=== PATIENT | female | born 1970 | race Caucasian/White ===

== ENCOUNTER 2019-01-16 12:16 | Observation (INO) | payer OTHER, SELFPAY ==
[2019-01-16] VITALS (15 sets, daily range): BP systolic 104–132; BP diastolic 48–92; PULSE 88–119; RESP 16–28; TEMP 36.1–37.2; O2SAT 87–96; BMI 47.0; BMI 46.5
--- NOTE | 2019-01-16 12:52 | EKG12_ITS ---
Test Reason : GENERAL ILLNESS Blood Pressure : / mmHG Vent. Rate : 090 BPM Atrial Rate : 090 BPM P-R Int : 192 ms QRS Dur : 086 ms QT Int : 358 ms P-R-T Axes : 035 016 032 degrees QTc Int : 437 ms Normal sinus rhythm Septal infarct , age undetermined Abnormal ECG Confirmed by BHUPENDRA BULLOCK, ROSIBEL ([id number]), marketing editor JAMILAH CULLEN ([id number]) on 01/20/2019 10:39:29 AM Referred By: LESA Confirmed By:ROSIBEL HUIZAR MD
[2019-01-16] MEDS: Ipratropium/Albuterol Sulfate 3 ML AMPUL.NEB INHALATION ×3 (13:10→22:59)
[2019-01-16] MEDS: 0.9% Normal Saline 1,000 ML 150 ML IV (13:19)
[2019-01-16] MEDS: MethylPREDNISolone 125 MG/2 ML Vial IV (13:19)
[2019-01-16 13:24] LABS: Absolute Lymphocyte Count 1.28 X10^3/ul (0.83-4.51); Absolute Neutrophil Count 4.2 X10^3/uL (2.0-7.7); Basophil# 0.04 X10^3/uL; Basophil% 0.6 % (0-1); Eosinophil# 0.27 X10^3/uL; Eosinophils% 4.3 % (0-5); Hematocrit 55.2 % (37-47); Hemoglobin 17.8 g/dl (12.0-15.0); Lymphocyte # 1.28 X10^3/ul (4.0); Lymphocyte % 20.2 % (19-41); Mean Corp Hgb Conc 32.2 g/gl (32-36); Mean Corpuscular Hgb 33.7 pg (27.0-32.0); Mean Corpuscular Volume 104.5 fL (81-99); Mean Platelet Vol. 10.6 fl (6.2-12.0); Monocyte# 0.58 X10^3/uL; Monocyte% 9.1 % (0-10); Neutrophil # 4.17 X10^3/uL (2.7-7.7); Neutrophil % 65.6 % (47-70); Platelet Count 204 K/mm3 (150-450); RBC Distribution Width CV 14.8 % (11.6-14.6); Red Blood Count 5.28 M/mm3 (4.2-5.4); White Blood Count 6.4 K/mm3 (4.4-11.0)
[2019-01-16 13:26] LABS: POSITIVE COUNT NO; POSITIVE DIFFERENTIAL NO; POSITIVE MORPHOLOGY NO
[2019-01-16 13:31] LABS: Anion Gap 6 (5-15); BUN 19 mg/dL (7-18); BUN/Creat Ratio 18.8 RATIO (10-20); Calcium,Total 9.7 mg/dL (8.5-10.1); Chloride 99 mmol/L (98-107); Creatinine, Serum 1.01 mg/dL (0.55-1.02); EST Glomerular Filtration Rate 62 mL/min (>60); Est Glom Filt Rate - Afr Amer 75 mL/min (>60); Estimated Creatinine Clearance 63.77 ml/min; Glucose 115 mg/dL (74-106); Potassium 4.4 mmol/L (3.5-5.1); Sodium Level 138 mmol/L (136-145)
[2019-01-16 13:37] LABS: D-Dimer Quantitative (DVT/PE) 0.65 FEU/ug/m (0.27-0.49)
--- NOTE | 2019-01-16 13:39 | CT_ITS ---
STUDY: CTA CHEST REASON FOR EXAM: Female, 48 years old. Hypoxia. RADIATION DOSAGE (If Supplied By Facility): CTDIvol = ( 13.20 ) mGy, DLP = ( 700.87 ) mGycm TECHNIQUE: The examination was performed with the intravenous administration of Isovue 370 100 IV. Post-processing of the angiographic images was performed, with multiplanar reformation and 3D reconstruction. Individualized dose optimization techniques were used for this CT. COMPARISON: None. FINDINGS: Normal enhancement of the main pulmonary artery and right and left pulmonary arteries. Normal enhancement of the bilateral peripheral pulmonary arteries. There is no demonstrated pulmonary embolism. Normal thoracic aorta and visualized great vessels. There is no demonstrated aortic dissection. Normal heart and pericardium. Normal mediastinum. Normal hilar regions. Normal visualized trachea and bronchi. The lungs are well expanded. Mild degree of increased markings at the left lung base suggestive of atelectasis Normal pleura. Normal chest wall structures. There are degenerative changes of thoracic spine. Normal visualized upper abdomen. CT/CTA Chest W/WO Contrast IMPRESSION: Normal CTA chest examination, without a demonstrated pulmonary embolism or arterial dissection. Electronically Signed: Todd Rangel MD at 15:39 EST , Service support ,
[2019-01-16] MEDS: LORazepam 2 MG/ML Syringe 1 MG IV (14:16)
--- NOTE | 2019-01-16 15:58 | ED.DCSUM_ITS ---
- ER Visit Summary Date of Service: 01/16/19 Chief Complaint: [Shortness of breath] History of Present Illness: The patient is a 48 F [presents the emergency department with complaint of shortness of breath for about 4 days. Patient's had a cough and some chills as well as subjective fever. Patient at times will bring up some yellow sputum. She was seen at the urgent care today and given a breathing treatment and after breathing treatment her O2 sat was 87% therefore she was referred to the emergency department for evaluation. Patient denies recent travel or surgery. She does complain of exertional dyspnea. She does not have a history of asthma and she does not smoke. She denies any sick cont acts.] Physical Examination: [HEENT-PERRLA, EOMI. Cranial nerves II through XII grossly intact. TMs clear. Mucous membranes moist. No adenopathy. Cardiovascular-regular rate and rhythm without murmur or ectopy Lungs-diminished breath sounds bilaterally with some faint expiratory wheezes noted. Mild tachypnea. No accessory muscle use or retractions. No significant conversational dyspnea. Abdomen-normoactive bowel sounds, soft, nontender, no rebound or rigidity, no peritoneal signs. Extremities-intact ?4, normal range of motion, normal pulses, atraumatic. No edema of the lower extremities.] Test Results: [EKG obtained arrival shows sinus rhythm with a ventricular rate of 90 bpm with old septal infarct noted. CBC with differential showing a 6.4, hemoglobin 17 hematocrit 55, platelets 204. Chemistries unremarkable. D-dimer was elevated at 0.6 therefore CTA of the chest was obtained which was negative for PE or dissection.] Emergency Department Course and Treatment: [Patient received a DuoNeb aerosol and Solu-Medrol 125 mill grams IV. Patient was placed on nasal cannula O2.] Treatment Plan: [Admit] Disposition: [Admit] Impression: [Asthmatic bronchitis Hypoxemia] This note was generated with [employer] dictation software. It may contain incorrect words, spelling, and punctuation that were not noted in review of the chart prior to signing ED Disposition - Plan for ED Patient: Referrals: Christian Padilla MD [Primary Care Provider] -
--- NOTE | 2019-01-16 16:17 | HP.PCM_ITS ---
Problem List (1) Acute hypoxic respiratory failure Status: Acute (2) Acute bronchitis and bronchiolitis Status: Acute (3) Hypertension Status: Chronic (4) Morbid obesity Status: Chronic History of Present Illness Date of Admission: 01/16/19 Chief Complaint: Shortness of breath for 4 days The patient is a 48 year old F with history of morbid obesity, chronic sinusitis and probably obstructive sleep apnea came to ED with shortness of breath and cough for 4 days. She denies any chest pain/pressure. Cough is mainly dry but sometimes brings yellow phlegm and a subjective fever with chills. She was seen at urgent care and was found hypoxic 88% on room air. Heart rate 94 - 103/min. Respiratory rate 18-20/min. [] Chest x-ray done at the urgent care interstitial lung markings at right mid and lower lung without definite focal infiltrate or airspace consolidation seems mainly chronic. Subtle peribronchial cuffing suggestive of possible viral bronchiolitis. Past Medical History Past Medical History (Chronic Problems): Chronic Problems Hypertension (Chronic) Morbid obesity (Chronic) Allergies No Known Allergies Allergy (Verified 01/16/19 12:32) Home Medications: Ambulatory Orders Medication Instructions Recorded Hydrochlorothiazide 12.5 mg PO DAILY 01/16/19 Lisinopril [Zestril] 40 mg PO DAILY 01/16/19 Smoking Status: Former smoker - *Family History Paternal History Items: Stroke Maternal History Items: Dementia, Heart Disease Review of Systems Constitutional: Reports: Chills, Fever HEENT: Denies: Head Aches, Sinus Congestion, Sinus Drainage Cardiovascular: Denies: Chest Pain, Palpitations Respiratory: Reports: Cough, Shortness of breath at rest, Shortness of breath upon exertion. Denies: Sputum production Gastrointestinal: Denies: Abdominal Pain, Nausea, Vomiting Genitourinary: Denies: Dysuria, Frequency, Hematuria, Hesitancy Musculoskeletal: Denies: Joint Pain, Joint Tenderness Skin: Denies: Rash, Wounds Neurological: Denies: Numbness, Tingling, Focal weakness Psychiatric: Denies: Anxiety, Depression, Homicidal Ideations, Suicidal Ideations Hematologic/ Lymphatic: Denies: Easy Bruising, Easy Bleeding VTE Information - Inpt Only VTE Present on Admission: No VTE Mechan Device Prophylaxis: None VTE Pharm Prophylaxis ordered?: Yes Patient Problems: Active and Suspected Problems Acute hypoxic respiratory failure (Acute) Acute bronchitis and bronchiolitis (Acute) - Physical Exam General: Alert, Oriented x3, Cooperative HEENT: Atraumatic, PERRLA, EOMI, Normocephalic Neck: Supple, No JVD, Negative Carotid Bruits Lungs: Diminished - Air entry diminished bilaterally, Rhonchi, Short of Breath, Wheezes Cardiovascular: Regular rate, Regular Rhythm, Normal S1, Normal S2, No murmurs Abdomen: Bowel Sounds Present, Soft, Non Tender, Non-Distended Extremities: No edema, Capillary Refill Less than 3 Seconds Skin: No rashes, No breakdown Musculoskeletal: No Tenderness to Palpation of Joints or Extremities, Arthritic Changes Neurological: Cranial nerves II-XII grossly intact Psych/Mental Status: Normal Affect, Appropriate Vital Signs Temp Pulse Resp BP Pulse Ox 98.5 F 99 20 H 115/92 H 93 01/16/19 15:10 01/16/19 15:10 01/16/19 15:10 01/16/19 15:10 01/16/19 15:10 Oxygen Flow Rate (L/min) 3 Oxygen Delivery Method Nasal Cannula Weight: 291 lb 0.163 oz Body Mass Index (BMI) 47.0 Laboratory Tests Past 24 Hrs 01/16/19 01/16/19 01/16/19 13:15 13:15 13:15 WBC 6.4 RBC 5.28 Hgb 17.8 H Hct 55.2 H MCV 104.5 H MCH 33.7 H MCHC 32.2 RDW 14.8 H RDW Differential 57.0 H Plt Count 204 MPV 10.6 Immature Gran % (Auto) 0.200 Neut % (Auto) 65.6 Lymph % (Auto) 20.2 [place] % (Auto) 9.1 Eos % (Auto) 4.3 Baso % (Auto) 0.6 Absolute Neuts (auto) 4.2 Absolute Lymphs (auto) 1.28 Total Counted Not Reportable D-Dimer Quant (PE/DVT) 0.65 H* Sodium 138 Potassium 4.4 Chloride 99 Carbon Dioxide 33.0 H Anion Gap 6 BUN 19 H Creatinine 1.01 Estim Creat Clear Calc 63.77 Est GFR (MDRD) Af Amer 75 Est GFR (MDRD) Non-Af 62 BUN/Creatinine Ratio 18.8 Glucose 115 H Calcium 9.7 Assessment/Plan All Active Problems Acute hypoxic respiratory failure (Acute) Acute bronchitis and bronchiolitis (Acute) The patient is a 48 year old F with history of morbid obesity, chronic sinusitis and probably obstructive sleep apnea came to ED with shortness of breath and cough for 4 days. She denies any chest pain/pressure. Cough is mainly dry but sometimes brings yellow phlegm and a subjective fever with chills. She was seen at urgent care and was found hypoxic 88% on room air. Heart rate 94 - 103/min. Respiratory rate 18-20/min. [] Chest x-ray done at the urgent care interstitial lung markings at right mid and lower lung without definite focal infiltrate or airspace consolidation seems yahaira nly chronic. Subtle peribronchial cuffing suggestive of possible viral bronchiolitis. 1. Acute hypoxic respiratory failure most probably bronchiolitis, most probably viral bronchiolitis: [facility] Repeat chest x-ray PA and lateral tomorrow a.m. Respiratory panel ordered. Monitor temperature profile. 2. Acute bronchitis/bronchiolitis or possible COPD asthmatic bronchitis and possible obstructive sleep apnea/Obesity hypoventilation syndrome: : Started smoking since age of 16, relapsed 2-3 times and finally quit 1 year ago. Patient also probably obstructive sleep apnea with snoring and intermittent waking up in the night. Patient was advised outpatient sleep study. 3. Hypertension: Blood pressure stable. DVT prophylaxis: Lovenox 40 minutes subcu daily Laboratory Results 01/16/19 13:15: WBC 6.4, RBC 5.28, Hgb 17.8 H, Hct 55.2 H, MCV 104.5 H, MCH 33.7 H, MCHC 32.2, RDW 14.8 H, RDW Differential 57.0 H, Plt Count 204, MPV 10.6, Immature Gran % (Auto) 0.200, Neut % (Auto) 65.6, Lymph % (Auto) 20.2, Fleming % (Auto) 9.1, Eos % (Auto) 4.3, Baso % (Auto) 0.6, Absolute Neuts (auto) 4.2, Absolute Lymphs (auto) 1.28, Total Counted Not Reportable 01/16/19 13:15: D-Dimer Quant (PE/DVT) 0.65 H* 01/16/19 13:15: Sodium 138, Potassium 4.4, Chloride 99, Carbon Dioxide 33.0 H, Anion Gap 6, BUN 19 H, Creatinine 1.01, Estim Creat Clear Calc 63.77, Est GFR (MDRD) Af Amer 75, Est GFR (MDRD) Non-Af 62, BUN/Creatinine Ratio 18.8, Glucose 115 H, Calcium 9.7 Code Visit Inpatient E&M: 75850 Init Hosp L3
[2019-01-16] MEDS: Enoxaparin 40 MG/0.4 ML Syringe SC (18:21)
[2019-01-16] MEDS: 0.9% Normal Saline 1,000 ML 75 ML IV (18:21)
[2019-01-17] VITALS (10 sets, daily range): BP systolic 111–143; BP diastolic 63–99; PULSE 82–120; RESP 18–22; TEMP 36.4–36.8; O2SAT 86–97
[2019-01-17] MEDS: Acetaminophen 325 MG Tablet 650 MG PO (01:04)
--- NOTE | 2019-01-17 06:15 | RAD_ITS ---
STUDY: X-RAY CHEST REASON FOR EXAM: Female, 48 years old. Shortness of breath. TECHNIQUE: PA and lateral views of the chest. COMPARISON: CTA chest January 16, 2019. FINDINGS: The lungs are clear and moderately expanded. There is no demonstrated pleural abnormality. The heart size is upper normal. Normal mediastinum and rodrigo. Normal visualized pulmonary arteries. There is early atherosclerotic calcification of the aortic arch. There are multilevel degenerative changes of the visualized thoracic spine. Normal visualized ribs, clavicles, and shoulders. There is no demonstrated abnormality of the visualized soft tissue structures of the upper abdomen. RAD/Chest PA and Lateral IMPRESSION: No acute cardiopulmonary disease. Electronically Signed: Dileep Caruso MD at 10:17 EST , Service support ,
[2019-01-17] MEDS: Ipratropium/Albuterol Sulfate 3 ML AMPUL.NEB INHALATION ×3 (06:40→14:07)
[2019-01-17] MEDS: hydroCHLOROthiazide 12.5mg 12.5 MG PO (10:29)
[2019-01-17] MEDS: Enoxaparin 40 MG/0.4 ML Syringe SC (10:29)
[2019-01-17] MEDS: Polyethylene Glycol 3350 17 GM PACKET PO (10:29)
[2019-01-17] MEDS: Lisinopril 40 MG Tablet PO (10:29)
--- NOTE | 2019-01-17 12:15 | PCM.PROGNOTE ---
Patient Problems: Active and Suspected Problems Acute hypoxic respiratory failure (Acute) Acute bronchitis and bronchiolitis (Acute) Subjective: The patient is a 48-year-old female with a past medical history of hypertension, nicotine dependence and morbid obesity who presented to the emergency department at [facility] on 01/16/2019 complaining of shortness of breath for 4 days. He denies chest pain. She has minimal cough and subjective fever, from her OA? She was seen at an urgent care and pulse ox was 88% on room air at rest with a heart rate of 94-103 bpm. Chest x-ray at the urgent care showed increased interstitial markings on the right in the mid lung and lower lung. Vital signs at presentation to the emergency room were temperature 97, pulse rate 113, blood pressure 132/92, respiratory rate 20 and she was 87% saturated on room air and 92-96% saturated on a 2 L nasal cannula. White blood cell count was 6.4 with a normal differential. Hemoglobin was 17.8 with a hematocrit of 55. Platelets were within normal limits. D-dimer was 0.65. Serum bicarb was increased at 33 and the BUN was 19 with a creatinine of 1.01. CTA of the chest was normal. There was a mild degree of increased markings at the left base suggestive of atelectasis. There were no definite infiltrates. On physical examination by the hospitalist she had diminished breath sounds bilaterally with rhonchi and wheezes. She was admitted to the hospital and started on high-dose intravenous steroids and aerosolized bronchodilators. She was also started on azithromycin. All events of the past 24 hours have been reviewed. Vital signs are stable. Pulse ox on room air has not been checked. The O2 has been increased to 4 LPM and she is now 96% saturated. I suspect that she is a CO2 retainer because the serum bicarb is elevated. She has never had a sleep study and her significant other states she snores loudly and quits breathing......the nurses validated this. She is chronically fatigued. She does not wheeze. Quit smoking about a year ago. - Physical Exam General: Alert, Oriented x3, Cooperative, No apparent distress, Well developed, Well nourished HEENT: Atraumatic, PERRLA, EOMI, - - plethoric appearing face Oral: Moist Mucosa Neck: Supple, No JVD, No Nodes, Trachea Midline Lungs: Clear to auscultation, No rhonchi, No wheeze, No rales, Diminished Cardiovascular: Regular Rhythm, Normal S1, Normal S2, No murmurs, No rub noted, No Gallop, Tachycardic - it increased after the aerosols were started. Abdomen: Bowel Sounds Present, Soft, Non Tender, Non-Distended, Obese Extremities: No cyanosis, No edema Skin: No rashes, No breakdown Neurological: Cranial nerves II-XII grossly intact, Neuro grossly intact Psych/Mental Status: Normal Affect, Appropriate Vital Signs Temp Pulse Resp BP Pulse Ox 98.2 F 106 H 20 H 141/88 H 96 01/17/19 10:15 01/17/19 10:45 01/17/19 10:45 01/17/19 10:15 01/17/19 10:15 Oxygen Flow Rate (L/min) 4 Oxygen Delivery Method Nasal Cannula Weight: 288 lb Body Mass Index (BMI) 46.5 Intake and Output for Last 24 Hours 01/15/19 01/16/19 01/17/19 23:59 23:59 23:59 Intake Total 1618 / 1618 Balance 1618 / 1618 Microbiology Past 72 Hours 01/16/19 13:13 Respiratory Panel (PCR) - Final Mucosa - Nasopharyngeal Parainfluenza 4 01/16/19 18:20 Group A Streptococcus Rapid Screen - Preliminary Mucosa - Throat Laboratory Tests Past 24 Hrs 01/16/19 01/16/19 01/16/19 13:15 13:15 13:15 WBC 6.4 RBC 5.28 Hgb 17.8 H Hct 55.2 H MCV 104.5 H MCH 33.7 H MCHC 32.2 RDW 14.8 H RDW Differential 57.0 H Plt Count 204 MPV 10.6 Immature Gran % (Auto) 0.200 Neut % (Auto) 65.6 Lymph % (Auto) 20.2 [place] % (Auto) 9.1 Eos % (Auto) 4.3 Baso % (Auto) 0.6 Absolute Neuts (auto) 4.2 Absolute Lymphs (auto) 1.28 Total Counted Not Reportable D-Dimer Quant (PE/DVT) 0.65 H* Sodium 138 Potassium 4.4 Chloride 99 Carbon Dioxide 33.0 H Anion Gap 6 BUN 19 H Creatinine 1.01 Estim Creat Clear Calc 63.77 Est GFR (MDRD) Af Amer 75 Est GFR (MDRD) Non-Af 62 BUN/Creatinine Ratio 18.8 Glucose 115 H Calcium 9.7 Medical Necessity - Tobacco Use Smoking Status: Former smoker Assessment/Plan All Active Problems Acute hypoxic respiratory failure (Acute) Acute bronchitis and bronchiolitis (Acute) Impressions 1. hypoxemia - pulse ox on RA at rest is 88%, with ambulation the pulse ox dropped to 86% and oxygen was applied. On 3 LPM she was 92%. 2. morbid obesity 3. Possible CO2 retention - serum bicarb is increased wt 33 4. 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 sleep disordered breathing - suspect DAVID DC home with O2 Will follow up in the office with Ara from pulmonary in 2 weeks to schedule PFT's and sleep study and then follow up with Dr. Bhat or Dr. Sampson Weight loss advised
--- NOTE | 2019-01-17 13:08 | CASEMGMT ---
Face to Face with patient for initial transition planning/care coordination assessment. ARVIND PRABHAKAR introduced self and role at [facility], voices understanding. Care providers, pharmacy, and demographics verified. Pt's at bedside. Pt provided permission to speak in front of him. PCP: Randy Specialists: none Preferred Pharmacy: [facility] Insurance: [facility] Living Arrangements: Pt lives in a two story home with her and her father who recently had a stroke. Pt's bedroom is on the second floor (approximately 20 steps) with the bathroom on the first floor. Pt states she was independent with ADL's prior to admission and anticipates remaining independent upon discharge. Transportation: Drives independently DME/HHC: shower chair, grab bars, hand held shower for her father but available to her. She does not have any other DME for herself. Is not on O2 at home. Pt has not had SNF or HH needs in the past. Plan: Noted pt requiring O2 at 4l/min per NC at this time. Will monitor for home O2 needs. Pt does not have any preference of providers. Denia Vicente RN
--- NOTE | 2019-01-17 13:56 | CASEMGMT ---
Social Work Referral to set up home oxygen. Patient has no preference of [employer], [facility] to be utilized. Patient qualifying for home oxygen per home oxygen test. Discharge information along with needed clinicals and oxygen order faxed to [employer]. [facility] notified of referral via phone conversation, Concepcion. [facility] to have equipment delivered to patient room prior to discharge today. Patient aware of above information and agreeable. Support given. Lexi Sibley PASSENGER TIRE BUILDER, IZ[place]LLA
--- NOTE | 2019-01-17 14:07 | DCINST_ITS ---
- Discharge Diagnoses Current Active Problems: Current Active and Chronic Problems Acute hypoxic respiratory failure (Acute) Acute bronchitis and bronchiolitis (Acute) Hypertension (Chronic) Morbid obesity (Chronic) You will use the following diet at home:: Other - 1800 calorie diet for weight reduction Your food should be the consistency of: Regular Your liquids should be the consistency of: Regular/Thin Discharge Activity: Return to Normal Activity Return to work on:: 01/20/19 May resume sexual activity in: No Restrictions Call your doctor if you observe: Fever of 101 or Higher, Shortness of breath, Dizziness, Fainting spells, Increased palpitations (irregular heartbeat) Instructions: Visiting a Sleep Clinic Additional Instructions: You should wear the oxygen 24 hours a day....radha when sleeping and when exerting yourself in any way. Allergies/Adverse Reactions: Allergies No Known Allergies Allergy (Verified 01/16/19 12:32) Medications to take at Discharge Hydrochlorothiazide 12.5 mg PO DAILY 01/16/19 Lisinopril [Zestril] 40 mg PO DAILY 01/16/19 Albuterol IH (ProAir) [Proair Hfa] 1 - 2 puff INHALATION Q4H PRN PRN #1 inhaler 01/17/19 Prednisone 20 mg PO DAILY #9 tablet 01/17/19 The following prescriptions were given: Albuterol IH (ProAir) [Proair Hfa] 1 - 2 puff INHALATION Q4H PRN PRN #1 inhaler PRN Reason: SOB/wheezing Prednisone 20 mg PO DAILY #9 tablet Primary Care Physician: Christian Padilla MD [Primary Care Provider] - Please follow up with your Primary Care Physician in: 1-2 weeks Test Results: Test results from this visit will be discussed in further detail at your follow- up appointment, if applicable. Please Follow Up With: Elliot Bhat DO When: follow up with Ara in 2 weeks to arrange a sleep study and PFT's Proposed Discharge Date: 01/17/19
--- NOTE | 2019-01-17 14:11 | DS.PCM_ITS ---
Discharge Date and Diagnosis - Problem List Patient Problems: Active and Suspected Problems Hypoxemia (Acute) Obstructive sleep apnea (Suspected) Date of Admission: 01/16/19 Date of Discharge: 01/17/19 - Primary Discharge Diagnosis Active and Suspected Problems Hypoxemia (Acute) Obstructive sleep apnea (Suspected) Acute bronchitis and bronchiolitis (Acute) - Secondary Discharge Diagnosis Chronic Problems Chronic respiratory insufficiency (Chronic) Sleep-disordered breathing (Chronic) Hypertension (Chronic) Morbid obesity (Chronic) Hospital Course and Treatment Imaging Results: 01/17/19 06:15 Chest PA and Lateral [RAD] AM (NON MEDS) Clinical Impression(s) from Imaging Studies Chest CTA 01/16/19 13:39 IMPRESSION: Normal CTA chest examination, without a demonstrated pulmonary embolism or arterial dissection. Electronically Signed: Todd Rangel MD at 15:39 EST , Service support , Chest X-Ray 01/17/19 06:15 IMPRESSION: No acute cardiopulmonary disease. Electronically Signed: Dileep Caruso MD at 10:17 EST , Service support , Microbiology 01/16/19 20:56 Sputum, Expectorated/Coughed Gram Stain - Final 01/16/19 20:56 Sputum, Expectorated/Coughed Respiratory Culture - Preliminary Appears to be normal respiratory zuri. Further studies to follow. 01/16/19 13:13 Mucosa - Nasopharyngeal Respiratory Panel (PCR) - Final Parainfluenza 4 01/16/19 18:20 Mucosa - Throat Group A Streptococcus Rapid Screen - Preliminary none Operations: None Procedures: None Summary of Care Provided: The patient is a 48-year-old female with a past medical history of hypertension, nicotine dependence and morbid obesity who presented to the emergency department at [facility] on 01/16/2019 complaining of shortness of breath for 4 days. She denied chest pain. She had minimal cough and subjective fever. She was seen at an urgent care and pulse ox was 88% on room air at rest with a heart rate of 94-103 bpm. Chest x-ray at the urgent care showed increased interstitial markings on the right in the mid lung and lower lung. Vital signs at presentation to the emergency room were temperature 97, pulse rate 113, blood pressure 132/92, respiratory rate 20 and she was 87% saturated on room air and 92-96% saturated on a 2 L nasal cannula. White blood cell count was 6.4 with a normal differential. Hemoglobin was 17.8 with a hematocrit of 55. Platelets were within normal limits. D-dimer was 0.65. Serum bicarb was increased at 33 and the BUN was 19 with a creatinine of 1.01. CTA of the chest was normal. There was a mild degree of increased markings at the left base suggestive of atelectasis. There were no definite infiltrates. On physical examination by the hospitalist she had diminished breath sounds bilaterally with rhonchi and wheezes. She was admitted to the hospital and started on high-dose intravenous steroids and aerosolized bronchodilators. She was also started on azithromycin. She was afebrile throughout the course of her hospital admission. Her significant other stated that she snores very loudly at night and she quits breathing. She had never had a sleep study. The nurses on the floor also validated that she snores very loudly. She is chronically fatigued and denied any history of wheezing. She quit smoking 1 year prior to admission to the hospital. Pulse ox on room air with ambulation was 86% and she required a 3 L nasal cannula with ambulation to keep her pulse ox at 90%. Respiratory panel was positive for parainfluenza 4. Rapid strep was negative. Sputum culture had normal respiratory zuri. Auscultation of her lungs on the date of discharge revealed them to be clear to auscultation. She was discharged home on home oxygen and was instructed to follow-up with the pulmonary department to arrange a sleep study and pulmonary function tests. She was given a prescription for a pro-air inhaler and instructed to use 1-2 puffs every 4 hours as needed for wheezing or shortness of breath. She was also given a prescription for a prednisone taper. She will follow-up with Dr. Padilla in the office in 1-2 weeks. This note was generated with [employer] software. It may contain incorrect words, spelling, and punctuation that were not noted in checking the note before signing. Patient Problems: Active and Suspected Problems Hypoxemia (Acute) Obstructive sleep apnea (Suspected) - Physical Exam Vital Signs Temp Pulse Resp BP Pulse Ox 97.6 F L 111 H 18 118/76 88 01/17/19 12:00 01/17/19 12:00 01/17/19 12:00 01/17/19 12:00 01/17/19 13:48 Oxygen Flow Rate (L/min) [ 3 AMBULATION with Oxygen] Oxygen Flow Rate (L/min) 4 Oxygen Delivery Method Nasal Cannula Weight: 288 lb Body Mass Index (BMI) 46.5 Intake and Output for Last 24 Hours 01/15/19 01/16/19 01/17/19 23:59 23:59 23:59 Intake Total 1618 / 1618 Balance 1618 / 1618 Microbiology Past 72 Hours 01/16/19 13:13 Respiratory Panel (PCR) - Final Mucosa - Nasopharyngeal Parainfluenza 4 01/16/19 18:20 Group A Streptococcus Rapid Screen - Preliminary Mucosa - Throat Discharge Activity: Return to Normal Activity Return to work on:: 01/20/19 May resume sexual activity in: No Restrictions Call your doctor if you observe: Fever of 101 or Higher, Shortness of breath, Dizziness, Fainting spells, Increased palpitations (irregular heartbeat) Home Medications: Medications to take at Discharge Hydrochlorothiazide 12.5 mg PO DAILY 01/16/19 Lisinopril [Zestril] 40 mg PO DAILY 01/16/19 Albuterol IH (ProAir) [Proair Hfa] 1 - 2 puff INHALATION Q4H PRN PRN #1 inhaler 01/17/19 Prednisone 20 mg PO DAILY #9 tablet 01/17/19 Following Prescrptions Were Given to Patient: Albuterol IH (ProAir) [Proair Hfa] 1 - 2 puff INHALATION Q4H PRN PRN #1 inhaler PRN Reason: SOB/wheezing Prednisone 20 mg PO DAILY #9 tablet Primary Care Physician: Christian Padilla MD [Primary Care Provider] - Please follow up with your Primary Care Physician in: 1-2 weeks Please Follow Up With: Elliot Bhat DO When: follow up with Ara in 2 weeks to arrange a sleep study and PFT's Patient Instructions: Visiting a Sleep Clinic Disposition: Home Minutes spent on discharge:: 30 Medical Necessity - Tobacco Use Smoking Status: Former smoker Tobacco Use: Non-smoker Meaningful Use Info Meaningful Use Diagnoses (Choose all that apply): None applicable Code Visit Inpatient E&M: 87117 Disch Hosp
--- NOTE | 2019-01-17 14:12 | PCM.WORK.EX ---
Work/School Excuse Work/School Excuse for:: Patient Please excuse this person from:: Work From: 01/16/19 through: 01/19/19 - must wear oxygen while at work
== END 2019-01-17 15:48 | disposition home or self-care (01) | DRG 189 ==
LOC: ED 13:02 → MS3 17:36
PROVIDERS: Admitting Provider Internal Medicine; Emergency Provider Emergency Medicine; Family Provider Family Medicine; PCP Family Medicine; Visit Provider Internal Medicine
DX: J96.01 Acute respiratory failure with hypoxia (principal); Z68.42 Body mass index [BMI] 45.0-49.9, adult; J21.9 Acute bronchiolitis, unspecified; J20.4 Acute bronchitis due to parainfluenza virus; Z87.891 Personal history of nicotine dependence; E66.01 Morbid (severe) obesity due to excess calories; I10 Essential (primary) hypertension; G47.33 Obstructive sleep apnea (adult) (pediatric); D75.1 Secondary polycythemia; Z71.3 Dietary counseling and surveillance; Z79.899 Other long term (current) drug therapy
CPT/HCPCS: 71046; 71275; 80048; 85025; 85379; 87070; 87205; 87633; 87880; 93005; 94640; 94667; 94668; 96361; 96365; 96372; 96375; 96376; 99218; 99283; J7030; Q9967; A4216; G0378

== ENCOUNTER → 2019-04-14 20:18 | Outpatient (CLI) | payer OTHER, SELFPAY ==
[2019-03-23 15:35] VITALS: BMI 47.0
== END ==
LOC: SL 20:18
PROVIDERS: Family Provider Family Medicine; PCP Family Medicine; Referring Provider Family Medicine; Visit Provider Family Medicine
DX: G47.33 Obstructive sleep apnea (adult) (pediatric) (principal)
CPT/HCPCS: 95811

== ENCOUNTER → 2019-05-07 14:00 | Outpatient (CLI) | payer OTHER, SELFPAY ==
[2019-03-23 15:35] VITALS: BMI 47.0
== END ==
PROVIDERS: Family Provider Family Medicine; PCP Family Medicine; Visit Provider Family Medicine
DX: R69 Illness, unspecified (principal)

== ENCOUNTER 2021-01-17 13:01 | Outpatient (RCR) | payer OTHER, SELFPAY ==
[2019-03-23 15:35] VITALS: BMI 47.0
--- NOTE | 2021-01-17 14:13 | HP.PTEVAL_ITS ---
Patient's Visit Information JARAD BROWN is a 50 year old F referred to Physical Therapy by JOANNA MORALES with a diagnosis of Bilateral Primary OA of Knee. Date of Evaluation: 01/17/21 Physical Therapist: Vaibhav Buckley, PT, Cert MDT, OCS - Visit Plan Frequency: 1x/Week Duration: 4 Weeks Plan: 1x/week for 4 weeks. PT Interventions: LE strengthening, gait mechanics, stair negotiation, LE AROM, flexibility, endurance. - Subjective Patient is a 50 year old female presenting to the clinic with B knee pain. L knee is worse than the R. She states that her knee has gotten worse over the past few months. X-ray showed severe arthritis behind B patella. States her doctor is trying to get surgery (TKA) scheduled or gel injections. States the doctor wants her to lose weight prior to getting surgery. Aggravating factors: sitting, walking, stairs, bending, and lifting. Negotiates stair with a step too pattern. Icing helps. Reports sleeping is okay if she can get comfortable; sleeps on her side or back. Patient states that pain, ROM, and weakness are all limiting factors. Denies any recent falls. States she received a cortisone injection about a month ago; reports it did not help at all. Vocation: [employer] (not currently working but wanting to RTW soon). Social: Has assistance at home - Pain Left Knee Pain Intensity (Out of 10): 8 Pain Intensity Range: 10 - Objective Gait: Decreased pipo, antalgic gait L. Edema Measurements: Suprapatellar: L 53 cm, R 51 cm; Patellar: L 42 cm, 41 cm. Palpation: TTP around L patellar, patellar tendon and posterior knee. No TTP around medial/lateral joint line. Sensation: Intact to light touch in B LE. Paterllar Mobility: Hypomobility sup, inf, med, lat on L. L knee flexion 112 degrees, ext -9. R knee flexion 125 degrees, ext -2. LE MMT: L knee flexion 4+/5, hip abd 4/5, quad 4+/5, hams 4/5, DF 5/5. R knee flexion 4+/5, hip abd 4/5, quad 4+/5, hams 4+/5, DF 5/5. Sit to stand: No functional valgus present - Special Tests R Knee Valgus - MCL: Negative R Knee Varus - LCL: Negative R Knee Patellar Apprehension - PFS: Negative L Knee Valgus - MCL: Positive L Knee Varus - LCL: Negative L Knee Patellar Apprehension - PFS: Positive - Goals Goal 1:: Patient will demonstrate 4+/5 LE MMT for improved functional strength. Goal Time Frame: 2-4 Weeks Goal 2:: Patient will demonstrate improve L knee flexion to 130 degrees and ext to -5 degrees for improved functional mobility. Goal Time Frame: 2-4 Weeks Goal 3:: Patient will improve LEFS score by 5 or > points for improved QOL. Goal Time Frame: 2-4 Weeks Goal 4:: Patient will demonstrate less antalgic gait on left for improved ambulation and gait mechanics. Goal Time Frame: 2-4 Weeks Goal 5:: Patient will report no more than 5/10 pain with sitting, walking, bending and stairs for improved mobility and function. Goal Time Frame: 2-4 Weeks - Rehabilitation Potential Physical Therapy Diagnosis: Patient is a 50 year old female presenting to the clinic with B knee pain L>R. Pain is worse in the morning and with bending, walking, stair negotiation, sitting for long periods of time. Pain consistent with B knee arthritis. Rehabilitation Potential: Good - Anticipated Interventions Patient/Client Instruction: Educate patient on: Condition, Plan of Care, Benefits of Fitness Program For the Purpose of:: To decrease pain, To decrease swelling/inflammation, To increase ROM, To improve muscle performance and motor function, To improve ability to perform ADL's, To increase tolerance to activity/condition/position, To improve performance and independence with ADL's, To improve ability of physical actions for home/community/work/leisure, To improve gait and locomotor functions, To increase flexibility/ROM, To improve endurance, To improve safety with gait, To improve health and function, To improve ability to perform tasks related to life management, To improve tolerance to ADL's Therapeutic Exercise to Include: Strength training, Endurance training, Body mechanics, Flexibilty training, Gait and locomotor training, Active ROM For the Purpose of:: To decrease pain, To decrease swelling/inflammation, To increase ROM, To improve muscle performance and motor function, To improve ability to perform ADL's, To increase tolerance to activity/condition/position, To improve ability of physical actions for home/community/work/leisure, To improve gait and locomotor functions, To increase flexibility/ROM, To improve endurance, To improve safety with gait, To improve health and function, To improve self management, To improve ability to perform tasks related to life management, To improve tolerance to ADL's IF ES: Yes Other electric stimulation: Yes Cryotherapy (ice pack, ice massage): Yes Thermo therapy (hot pack): Yes For the Purpose of:: To decrease pain, To decrease swelling/inflammation, To increase ROM, To improve muscle performance and motor function, To improve ability to perform ADL's, To increase tolerance to activity/condition/position, To improve performance and independence with ADL's, To improve ability of physical actions for home/community/work/leisure, To improve gait and locomotor functions, To increase flexibility/ROM, To improve endurance, To improve safety with gait, To improve health and function, To improve self management, To improve ability to perform tasks related to life management, To improve tolerance to ADL's Thank you for the opportunity to evaluate your patient. For Medicare and Medicare HMO plans, please review the plan of care and approve it. It will need to be FAXED BACK to us at [phone] for Medicare purposes. For Medicare only, by signing this I certify the plan of care. Please let me know if there are questions or concerns regarding this plan of care. Physician Signature: Date:
--- NOTE | 2021-07-11 13:37 | HP.PT.NRP ---
JARAD Hutchinson KEVIN was seen in my office for initial evaluation on 01/17/21. The following Plan of Care was established for this patient: Initial Frequency: 1x/Week Initial Duration: 4 Weeks Patient/Client Instruction: Educate patient on: Condition, Plan of Care, Benefits of Fitness Program For the Purpose of:: To decrease pain, To decrease swelling/inflammation, To increase ROM, To improve muscle performance and motor function, To improve ability to perform ADL's, To increase tolerance to activity/condition/position, To improve performance and independence with ADL's, To improve ability of physical actions for home/community/work/leisure, To improve gait and locomotor functions, To increase flexibility/ROM, To improve endurance, To improve safety with gait, To improve health and function, To improve ability to perform tasks related to life management, To improve tolerance to ADL's Therapeutic Exercise to Include: Strength training, Endurance training, Body mechanics, Flexibilty training, Gait and locomotor training, Active ROM For the Purpose of:: To decrease pain, To decrease swelling/inflammation, To increase ROM, To improve muscle performance and motor function, To improve ability to perform ADL's, To increase tolerance to activity/condition/position, To improve ability of physical actions for home/community/work/leisure, To improve gait and locomotor functions, To increase flexibility/ROM, To improve endurance, To improve safety with gait, To improve health and function, To improve self management, To improve ability to perform tasks related to life management, To improve tolerance to ADL's IF ES: Yes Other electric stimulation: Yes Cryotherapy (ice pack, ice massage): Yes Thermo therapy (hot pack): Yes For the Purpose of:: To decrease pain, To decrease swelling/inflammation, To increase ROM, To improve muscle performance and motor function, To improve ability to perform ADL's, To increase tolerance to activity/condition/position, To improve performance and independence with ADL's, To improve ability of physical actions for home/community/work/leisure, To improve gait and locomotor functions, To increase flexibility/ROM, To improve endurance, To improve safety with gait, To improve health and function, To improve self management, To improve ability to perform tasks related to life management, To improve tolerance to ADL's This patient was last seen in our office . Pertinent comments regarding their Physical therapy will appear below: Patient was seen for PT for HEP bilateral knee pain At this point I will be discontinuing this patient from physical therapy. I would be happy to see this patient again in the future if found appropriate by the physician. Thank you! Vaibhav Buckley, PT, Cert MDT, OCS Balance/Gait/Functional tests - Balance/Special Test Scores Lower Extremity Functional Score: 19
== END 2021-01-17 19:00 | disposition home or self-care (01) ==
LOC: PT 13:01
PROVIDERS: PCP Family Medicine
DX: M17.0 Bilateral primary osteoarthritis of knee (principal)
CPT/HCPCS: 97110; 97161

== ENCOUNTER 2023-02-02 10:10 | Emergency (ER) | payer SELFPAY ==
[2023-02-02 10:10] VITALS: BP 151/112; PULSE 90; RESP 18; TEMP 36.6; O2SAT 95; BMI 44.6
--- NOTE | 2023-02-02 10:33 | EX.ED.DYSGE1 ---
HPI History of Present Illness Chief Complaint: Lower Extremity Injury Detail of Chief Complaint: Left leg pain Informant: patient Narrative Narrative: Patient presents the emergency department complaint of pain in her left leg that she has had for 2 to 3 days. Patient denies any injury. She describes pain from her left hip down to her foot. She denies recent travel or surgery. She denies weakness in extremities. She denies change in bowel or bladder function. She states she has had pain like this multiple times in the past and she attributed to arthritis that she has had since the age of 16. Patient also think she may have had sciatica in the past. Patient denies chest pain or shortness of breath. She denies recent illness. Prior similar symptoms: Yes PFSH PFSH Home Medications hydrochlorothiazide 12.5 mg tablet 12.5 mg PO DAILY bp 01/16/19 [History Last Taken 01/16/19] lisinopril 40 mg tablet 40 mg PO DAILY bp 01/16/19 [History Last Taken 01/16/19] albuterol sulfate 90 mcg/actuation aerosol inhaler (ProAir HFA) 1 - 2 puff inhalation Q4H PRN PRN SOB/wheezing ##1 01/17/19 [Rx Last Taken Unknown] prednisone 20 mg tablet 20 mg PO DAILY #9 tabs 01/17/19 [Rx Last Taken Unknown] cyclobenzaprine 10 mg tablet 10 mg PO TID PRN Muscle Spasm #20 TABLETS 02/02/23 [Rx Last Taken Unknown] methylprednisolone 4 mg tablets in a dose pack (Medrol (Jerome)) 4 mg PO DAILY #21 tabs 02/02/23 [Rx Last Taken Unknown] Allergy/AdvReac Type Severity Reaction Status Date / Time No Known Allergies Allergy Verified 02/02/23 10:13 Social History Smoking Status: Former smoker ROS ROS ED Review of Systems ROS Unobtainable: other Constitutional Constitutional ED: Reports lethargy; Denies chills, fever(s), sweats or weight loss Eyes Eyes: Denies blurry vision, change in vision or diplopia ENT ENT ED: Denies rhinorrhea or sore throat Cardiovascular Cardiovascular: Denies chest pain, orthopnea or racing heartbeat Respiratory/Chest Respiratory/Chest: Denies cough, dyspnea, dyspnea on exertion, orthopnea or sputum Gastrointestinal Gastrointestinal: Denies abdominal pain, diarrhea, nausea or vomiting Genitourinary Genitourinary ED: Denies dysuria, hematuria or urinary frequency Musculoskeletal Musculoskeletal: Reports back pain and other Details: Left leg pain ; Denies arthralgias, myalgias or neck pain Integumentary Denies abscess, Abrasions or rash Neurologic Neurologic: Denies headache(s) or weakness Psychiatric Psychiatric: Denies anxiety, depression or suicidal thoughts Endocrine Endocrinology: Denies polydipsia, polyphagia or polyuria Hematologic/Lymphatic Hematologic/Lymphatic: Denies easy bleeding, easy bruising or lymphadenopathy Allergic/Immunologic Allergic/Immunologic ED: Denies mouth swelling, tongue swelling or urticaria EXAM Physical Exam Const Vital Signs: 02/02/23 10:10 Temperature 97.8 F Temperature Source Temporal Pulse Rate 90 Respiratory Rate 18 Blood Pressure 151/112 H Blood Pressure Mean 125 Pulse Ox 95 Oxygen Delivery Method Room Air Positive well nourished and well developed General Appearance ED: well developed and NAD HEENT Reports TM's clear and moist mucous membranes normocephalic and atraumatic; Negative for trauma or tenderness Tympanic Membrane ED: Yes TM's clear Eyes PERRL and EOMs intact bilaterally General Eye ED: Negative for pale conjunctiva or scleral icterus Neck no lymphadenopathy, supple and no JVD General: Negative for tenderness Chest Wall inspection of chest normal and palpation of chest normal Chest: Negative for tenderness Resp normal respiratory effort and clear to auscultation bilaterally Effort and Inspection: Negative for respiratory distress or pain with movement Auscultation: Negative for rhonchi, wheezes or diminished lung sounds Cardio regular rate, regular rhythm, S1 normal heart sound, S2 normal heart sound and no murmurs Peripheral Pulses: pulses 2+ throughout GI normal to inspection, nondistended, normoactive bowel sounds, soft to palpation, non-tender, non-distended and no masses Back/Spine no CVA tenderness and no thoracic nor lumbar tenderness Back/Spine Narrative: No bony tenderness on exam of thoracic or lumbar spine. There is no erythema or warmth noted to her back. Patient does have pain with straight leg raising about 30 degrees while supine on the left. Deep tendon reflexes are plus 2 out of 4 bilaterally at the patella and Achilles with normal L5 extension. Patient has normal sensation to light touch. There is no evidence of knee effusion. Patient has no erythema or warmth to the leg. Negative Homans' sign. Extremity normal to inspection General Extremety ED: Negative for edema General Extremity: Negative for edema Neuro oriented x3, CN's II-XII intact bilaterally, no sensory deficits noted and gait normal Sensorium / Orientation: awake, alert, oriented to person, oriented to place and oriented to time Motor Exam: strength 5/5 throughout and strength abnormal Psych mental status grossly normal Skin no rashes or lesions noted and no wounds MDM MDM MDM Narrative Medical decision making narrative: Patient with left leg pain x2 to 3 days that she has had similarly in the past. In the differential would be sciatica versus arthritic pain versus DVT which I feel is less likely. Patient's had no trauma therefore I do not feel any imaging is indicated. Clinically I suspect more of a sciatica as the etiology for her pain. Patient has no leg edema or erythema she has no risk factors for DVT currently. I will write her a prescription for Flexeril and prednisone. Patient does not want narcotics for pain. Patient will be given referral to primary care physician for follow-up. Patient comfortable with plan. Discharge Plan Triage Chief Complaint: Lower Extremity Injury ED Provider: Davis Martin Dx/Rx/DC Orders Clinical Impression: Leg pain, left, Sciatica Instructions: ED Sciatica Prescriptions: New methylprednisolone [Medrol (Jerome)] 4 mg tablets,dose pack 4 mg PO DAILY Qty: 21 0RF cyclobenzaprine [cyclobenzaprine] 10 mg tablet 10 mg PO TID PRN (Reason: Muscle Spasm) Qty: 20 0RF No Action lisinopril 40 MG tablet 40 mg PO DAILY hydrochlorothiazide 12.5 MG tablet 12.5 mg PO DAILY prednisone 20 MG tablet 20 mg PO DAILY Qty: 9 0RF Rx Instructions: 2 tabs daily for 3 days then 1 tab daily for 3 days and the discontinue albuterol sulfate [ProAir HFA] 1 PUFF inhaler 1 - 2 puff inhalation Q4H PRN PRN (Reason: SOB/wheezing) Qty: 1 0RF Primary Care Provider: Care Physician,No Primary Referrals: Christian Padilla MD [Non-Staff] - Bob Garnica MD [Med Staff - Statement Distribution Clerk] - 3-5 Days Disposition Disposition: Home, Self Care
[2023-02-02] MEDS: predniSONE 20 MG Tablet 40 MG PO (10:43)
== END 2023-02-02 10:55 | disposition home or self-care (01) ==
PROVIDERS: Emergency Provider Emergency Medicine; Visit Provider Emergency Medicine
DX: M79.605 Pain in left leg (principal); M54.30 Sciatica, unspecified side; Z87.891 Personal history of nicotine dependence
CPT/HCPCS: 99283